=== PATIENT | male | born 1985 | race Hispanic/Latino ===

== ENCOUNTER → 2020-12-03 13:20 | Outpatient (ROUT) | payer OTHER, SELFPAY ==
[2020-12-03 13:35] LABS: COVID19 -Nasal RAPID POSITIVE (Negative)
== END ==
PROVIDERS: Visit Provider Family Medicine
DX: U07.1 COVID-19 (principal)
CPT/HCPCS: 87635

== ENCOUNTER 2021-08-17 07:19 | Emergency (ER) | payer SELFPAY ==
[2021-08-17] VITALS (17 sets, daily range): BP systolic 113–137; BP diastolic 64–78; PULSE 81–96; RESP 14–27; TEMP 36.8; O2SAT 98–100; BMI 31.1
--- NOTE | 2021-08-17 07:24 | ED_ITS ---
HPI - Syncope General Chief Complaint: Syncope Stated Complaint: Syncope Time Seen by Provider: 08/17/21 07:22 History of Present Illness HPI narrative: 36M smoker with the chief complaint of a syncopal episode this morning. He has no significant medical history and went to bed in his normal state of health. He awoke this morning with diarrhea. He states he ate some bad sausage last night, but denies any other medication or dietary change. He was driving to work and began feeling a bit fuzzy and lightheaded, had parked his car and after getting out and will be getting to walk into the building felt flushed and the next thing he knew he was on the ground. He suffered some minor facial injuries but denies any neck, back or extremity pain. He denies any vomiting or use of blood thinners. He has no facial numbness and states his teeth all wind up. He denies any chest pain or shortness of breath. He has had no recent travel, blood clots or hospitalizations. Related Data Allergies Allergy/AdvReac Type Severity Reaction Status Date / Time No Known Drug Allergies Allergy Verified 08/17/21 07:26 Review of Systems Review of Systems Narrative: GENERAL: Denies chills, fatigue, malaise, fever, sweats. HEENT: Denies sinus pain, ear pain, sore throat, difficulty swallowing, dizziness. RESPIRATORY: Denies dyspnea, cough, wheezing, hemoptysis, sputum. CARDIOVASCULAR: See HPI, GASTROINTESTINAL: See HPI : Denies dysuria, frequency, incontinence, hematuria, urinary retention. MUSCULOSKELETAL: denies weakness, joint pain, or bony pain SKIN: Denies rash, skin lesions, or other NEUROLOGIC: Denies weakness, headache, numbness, change in speech, confusion, seizures, incoordination. PSYCHIATRIC: No concerning psychosocial issues. 12 point review of systems is negative except for those stated above Exam Narrative Exam Narrative: GENERAL: 36] year old patient appears stated age. Well-developed patient, in mi ld distress. GCS 15 HEAD: superficial abrasions to face and chin, no lacerations were the upper rep air, no evidence of depressed skull fracture EYES: Pupils equal round and reactive. No hyphema Extraocular motions intact. No scleral icterus. No injection or drainage. ENT: Nose without bleeding, purulent drainage. No nasal septal hematoma Throat without erythema, tonsillar hypertrophy or exudate. Airway patent. NECK: Trachea midline. Non tender CARDIOVASCULAR: Regular rate and rhythm without murmurs, gallops, or rubs. RESPIRATORY: Clear to auscultation. Breath sounds equal bilaterally. No wheezes, rales, or rhonchi. GASTROINTESTINAL: Abdomen soft, non-tender, nondistended. EXTREMITIES: No edema or joint tenderness. BACK: Nontender without deformity or crepitance. No flank tenderness. NEURO: AOx3. SKIN: No rash or erythema of visible areas Initial Vital Signs Initial Vital Signs: Vital Signs Temperature 98.2 F 08/17/21 07:34 Pulse Rate 82 08/17/21 07:34 Respiratory Rate 19 08/17/21 07:34 Pulse Oximetry 99 08/17/21 07:34 Oxygen Delivery Method 08/17/21 07:34 Course Orders Ordered: Discontinued Medications Bacitracin (Bacitracin Oint 0.9 Gm Pckt) 1 applic TOP NOW ONE Stop: 08/17/21 09:16 Last Admin: 08/17/21 09:33 Dose: 1 applic Documented By: CAYDEN Diphtheria/Tetanus/Acell Pertussis (Tet,Diph,Pertuss(Acell),Vac/Pf 0.5 Ml Syringe) 0.5 ml IM .ONCE ONE Stop: 08/17/21 09:14 Last Admin: 08/17/21 09:33 Dose: 0.5 ml Documented By: CAYDEN Sodium Chloride (Normal Saline 0.9%) 1,000 mls @ 1,000 mls/hr IV BOLUS ONE Stop: 08/17/21 08:21 Last Infusion: 08/17/21 08:40 Dose: 0 mls/hr Documented By: Admin: 08/17/21 07:36 Dose: 1,000 mls/hr Documented By: CAYDEN Vital Signs Vital signs: Vital Signs - 8 hr 08/17/21 10:00 08/17/21 10:00 Pulse Rate 81 Respiratory Rate 22 Blood Pressure 115/70 Pulse Oximetry 98 Oxygen Delivery Method Room Air MDM - Syncope Lab Data Result diagrams: 08/17/21 07:40 08/17/21 07:40 Labs: Lab Results 08/17/21 08/17/21 08/17/21 Range/Units 07:40 07:40 07:40 WBC 17.0 H (4.5-11.0) X10^3/uL RBC 5.53 (4.5-5.9) X10^6/uL Hgb 16.2 (13.5-17.5) g/dL Hct 47.0 (41-53) % MCV 85.0 (80-100) fL MCH 29.3 (26-34) PG MCHC 34.4 (30-36) % RDW 12.5 (11.6-14.8) % Plt Count 233 (150-400) X10^3/uL Neut % (Auto) 84.1 H (50-75) % Lymph % (Auto) 5.8 L (25-40) % [place] % (Auto) 9.1 (3-14) % Eos % (Auto) 0.8 L (2-4) % Baso % (Auto) 0.2 (0-2) % Neut # (Auto) 34688 H (9409-5776) /uL Lymph # (Auto) 1000 L (7286-5173) /uL [place] # (Auto) 1500 H (0-900) /uL Eos # (Auto) 100 (0-450) /uL Baso # (Auto) 0 (0-100) /uL D-Dimer < 200 (<230) ng/mL Sodium 140 (137-145) mmol/L Potassium 4.7 (3.4-5.1) mmol/L Chloride 105 (98-107) mmol/L Carbon Dioxide 28 (22-32) mmol/L BUN 16 (9-20) mg/dL Creatinine 0.84 (0.66-1.25) mg/dL Estimated GFR > 60 (>60) mL/min BUN/Creatinine Ratio 19.0 (6-22) Glucose 110 H (70-100) mg/dL Calcium 8.7 (8.4-10.2) mg/dL Total Creatine Kinase (55-170) U/L CK-MB (CK-2) (<2.37) ng/mL CK-MB (CK-2) Rel Index (1.5-5.0) % Troponin I (0.01-0.034) ng/mL NT-Pro-B Natriuret Pep (<125) pg/mL 08/17/21 Range/Units 07:40 WBC (4.5-11.0) X10^3/uL RBC (4.5-5.9) X10^6/uL Hgb (13.5-17.5) g/dL Hct (41-53) % MCV (80-100) fL MCH (26-34) PG MCHC (30-36) % RDW (11.6-14.8) % Plt Count (150-400) X10^3/uL Neut % (Auto) (50-75) % Lymph % (Auto) (25-40) % [place] % (Auto) (3-14) % Eos % (Auto) (2-4) % Baso % (Auto) (0-2) % Neut # (Auto) (5997-6359) /uL Lymph # (Auto) (8526-2430) /uL [place] # (Auto) (0-900) /uL Eos # (Auto) (0-450) /uL Baso # (Auto) (0-100) /uL D-Dimer (<230) ng/mL Sodium (137-145) mmol/L Potassium (3.4-5.1) mmol/L Chloride (98-107) mmol/L Carbon Dioxide (22-32) mmol/L BUN (9-20) mg/dL Creatinine (0.66-1.25) mg/dL Estimated GFR (>60) mL/min BUN/Creatinine Ratio (6-22) Glucose (70-100) mg/dL Calcium (8.4-10.2) mg/dL Total Creatine Kinase 133 (55-170) U/L CK-MB (CK-2) 1.59 (<2.37) ng/mL CK-MB (CK-2) Rel Index 1.2 L (1.5-5.0) % Troponin I < 0.012 (0.01-0.034) ng/mL NT-Pro-B Natriuret Pep 46 (<125) pg/mL Point of Care Testing Glucose POC 95 MDM Narrative Medical decision making narrative: 36-year-old male with presents with some loose stools and prodromal symptoms leading into syncope including dizziness and lightheadedness with minor facial injuries. He has a very reassuring exam, labs are unremarkable. Multiple diagnoses considered including anemia, dehydration, electrolyte abnormality, even pulmonary embolism. He has significant improvement after above-stated therapies. Most likely orthostatic in nature given history and physical. Return precautions discussed and questions answered to his apparent satisfaction Discharge Plan Departure Patient Disposition: Home Clinical Impression: Syncope due to orthostatic hypotension, Diarrhea, Abrasion of face Instructions: DI for Syncope in Adults (Fainting) Activity Restrictions/Additional Instructions: *You have been diagnosed with [syncope with minor facial abrasions. As we discussed your history and physical exam as well as labs and EKGs are very reassuring. There is no evidence of heart attack, kidney failure, blood clot or other serious cause of passing out.] *What to do: *Please continue to take your regular medications as directed. [ ] New medication prescriptions sent to your pharmacy: [ ] [ ] New medication written as a paper prescription [x ] No new medications given *Please follow up with your primary care provider in 2-3 days, call for an appointment. Let them know you were seen in the Emergency Department and that we ask that you be seen in follow up. We will electronically transmit a record of today's note if your PCP is in our system *If you do not have a primary care provider please contact the [facility] Resource line at [phone]. They will ask some questions about your medical history and help get you set up with a doctor in the community. *Return to Emergency Department if you should have any new, worsening or concerning symptoms, such as [fever greater than 101 F, shaking chills, worsening pain, persistent vomiting or other bothersome symptoms] Stand Alone Forms: Work Release Note Visit Report Forms: Patient Portal/API
[2021-08-17] MEDS: SODIUM CHLORIDE 0.9% 1,000 ML 1000 ML IV (07:36)
[2021-08-17 07:59] LABS: Add Manual Diff / Slide Review NO; Basophils Absolute Auto 0 /uL (0-100); Basophils Percent Auto 0.2 % (0-2); Eosinophils Absolute Auto 100 /uL (0-450); Eosinophils Percent Auto 0.8 % (2-4); Hemoglobin 16.2 g/dL (13.5-17.5); Lymphocytes Absolute Auto 1000 /uL (1100-4500); Lymphocytes Percent Auto 5.8 % (25-40); Mean Corpuscular HGB Conc 34.4 % (30-36); Mean Corpuscular Hemoglobin 29.3 PG (26-34); Monocytes Absolute Auto 1500 /uL (0-900); Monocytes Percent Auto 9.1 % (3-14); Neutrophils Absolute Auto 14300 /uL (1500-7000); Neutrophils Percent Auto 84.1 % (50-75); Platelet Count 233 X10^3/uL (150-400); Red Blood Cell Count 5.53 X10^6/uL (4.5-5.9); Red Cell Distribution Width 12.5 % (11.6-14.8)
[2021-08-17 08:12] LABS: D Dimer < 200 ng/mL (<230)
[2021-08-17 08:13] LABS: Blood Urea Nitrogen 16 mg/dL (9-20); Calcium 8.7 mg/dL (8.4-10.2); Carbon Dioxide 28 mmol/L (22-32); Chloride 105 mmol/L (98-107); Creatine Kinase 133 U/L (55-170); Estimated Glomerular Filt Rate > 60 mL/min (>60); Glucose 110 mg/dL (70-100); HEMOLYSIS < 15 (0-50); Potassium 4.7 mmol/L (3.4-5.1); Sodium 140 mmol/L (137-145)
[2021-08-17 08:25] LABS: NT-proBNP (BNP-Adult 18+) 46 pg/mL (<125); Troponin I < 0.012 ng/mL (0.01-0.034)
[2021-08-17 08:28] LABS: CKMB % Relative Index 1.2 % (1.5-5.0); Creatine Kinase MB 1.59 ng/mL (<2.37)
[2021-08-17] MEDS: TET,DIPH,PERTUSS(ACELL),VAC/PF 0.5 ML SYRINGE IM (09:33)
[2021-08-17] MEDS: BACITRACIN OINT 0.9 GM PCKT 1 APPLIC TOP (09:33)
== END 2021-08-17 10:10 | disposition home or self-care (01) ==
LOC: ED 09:24
PROVIDERS: Emergency Provider Emergency Medicine
DX: I95.1 Orthostatic hypotension (principal); R19.7 Diarrhea, unspecified; S00.81XA Abrasion of other part of head, initial encounter; Z23 Encounter for immunization
CPT/HCPCS: 36415; 80048; 82550; 82553; 83880; 84484; 85025; 85379; 90471; 93005; 93010; 96360; 99284; 90715